=== PATIENT | female | born 2000 | race Caucasian/White ===

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

== ENCOUNTER 2020-09-02 23:44 | Emergency (ER) | payer MEDICAID, OTHER ==
[2020-09-03] MEDS ORDERED: Sodium Chloride 0.9% 10 ML Syringe FLUSH PRN (00:08)
[2020-09-03] MEDS ORDERED: Morphine 4 MG/ML VIAL IVPUSH ONE (00:10)
[2020-09-03] MEDS ORDERED: Ondansetron 4 MG/2 ML SDV IVPUSH ONE (00:10)
[2020-09-03] MEDS ORDERED: Sodium Chloride 0.9% 1,000 ML IV SCH (00:15)
--- NOTE | 2020-09-03 00:52 | EDM.PDOC ---
ED HPI GENERAL MEDICAL PROBLEM - General Chief Complaint: Abdominal Pain Stated Complaint: vomiting Time Seen by Provider: 09/02/20 23:45 Source of Information: Reports: Patient History Limitations: Reports: No Limitations - History of Present Illness INITIAL COMMENTS - FREE TEXT/NARRATIVE: Patient presented to the ED because of diarrhea for 1 week and today she has persistent nausea and vomiting. There is no associated fever although she has some chills. No cough or cold symptoms. The abdominal pain is cramping,7/10. upper and lower abd Pain Score (Numeric/FACES): 6 - Related Data Allergies Allergy/AdvReac Type Severity Reaction Status Date / Time No Known Allergies Allergy Verified 12/23/18 16:40 Home Meds: Home Meds desogestreL-ethinyl estradioL [Cyred 28 Day Tablet] 1 each PO DAILY 12/23/18 [History] Past Medical History - Past Health History Medical/Surgical History: Denies Medical/Surgical History HEENT History: Reports: Impaired Vision, Other (See Below) Other HEENT History: Eyeglasses Psychiatric History: Reports: Anxiety, Depression, Suicide Attempt Endocrine/Metabolic History: Reports: Obesity/BMI 30+ Hematologic History: Reports: Anemia Social & Family History - Family History Family Medical History: Noncontributory - Tobacco Use Tobacco Use Status *Q: Former Tobacco User Used Tobacco, but Quit: Yes Month/Year Tobacco Last Used: 2016 - Caffeine Use Caffeine Use: Reports: Soda, Tea ED ROS GENERAL - Review of Systems Review Of Systems: See Below Constitutional: Reports: No Symptoms HEENT: Reports: No Symptoms Respiratory: Reports: No Symptoms Cardiovascular: Reports: No Symptoms Endocrine: Reports: No Symptoms GI/Abdominal: Reports: Abdominal Pain, Nausea, Vomiting Musculoskeletal: Reports: No Symptoms Skin: Reports: No Symptoms Neurological: Reports: No Symptoms ED EXAM, GI/ABD - Physical Exam Exam: See Below Exam Limited By: No Limitations General Appearance: Alert, No Apparent Distress Ears: Normal External Exam, Normal [place] Nose: Normal Inspection, Normal Mucosa Throat/Mouth: Normal Inspection, Normal Lips, Normal Teeth Head: Atraumatic, Normocephalic Neck: Normal Inspection, Supple, Non-Tender Respiratory/Chest: No Respiratory Distress, Lungs Clear, Normal Breath Sounds Cardiovascular: Normal Peripheral Pulses, Regular Rate, Rhythm, No Edema, No G allop, No JVD, No Murmur GI/Abdominal Exam: Soft, No Distention, Abnormal Bowel Sounds, Other (tenderness over the suprapubic area and RLQ) Back Exam: Normal Inspection, Full Range of Motion Skin Exam: Warm, Dry, Intact Course - Vital Signs Text/Narrative:: Labs/Abd/Pelvis CT result was discussed with patient Ns 1 L bolus Zofran 4 mg IV x1 Morphine 4 mg IV x1 Compazine 10 mg IV x1 Toradol 30 mg IIV x1 Case discussed with dr Hernandez Last Recorded V/S: Last Vital Signs Temp 36.9 C 09/02/20 23:44 Pulse 97 09/02/20 23:44 Resp 16 09/02/20 23:44 BP 126/67 09/02/20 23:44 Pulse Ox 99 09/02/20 23:44 - Orders/Labs/Meds Orders: Active Orders 24 hr Category Date Time Status Abdomen Pelvis w Cont [CT] Stat Exams 09/03/20 00:52 Taken CORONAVIRUS COVID-19 LUCY [MOLEC] Stat Lab 09/03/20 02:24 Received Sodium Chloride 0.9% [Normal Saline] 1,000 ml Med 09/03/20 00:15 Active IV ASDIRECTED Sodium Chloride 0.9% [Saline Flush] Med 09/03/20 00:08 Active 10 ml FLUSH ASDIRECTED PRN Saline Lock Insert [OM.PC] Routine Oth 09/03/20 00:08 Ordered Medication Orders Sodium Chloride (Normal Saline) 1,000 mls @ 999 mls/hr IV ASDIRECTED BECKY Last Admin: 09/03/20 00:10 Dose: 999 mls/hr Documented by: [email or web address] Sodium Chloride (Saline Flush) 10 ml FLUSH ASDIRECTED PRN PRN Reason: Keep Vein Open Last Admin: 09/03/20 01:21 Dose: 10 ml Documented by: [id number] Labs: Laboratory Tests 09/03/20 09/03/20 09/03/20 Range/Units 00:22 00:22 00:22 WBC 11.4 (4.5-12.0) X10-3/uL RBC 5.43 H (3.23-5.20) x10(6)uL Hgb 15.7 H (11.5-15.5) g/dL Hct 45.7 (30.0-51.3) % MCV 84.0 (80-96) fL MCH 28.9 (27.7-33.6) pg MCHC 34.4 (32.2-35.4) g/dL RDW 12.7 (11.5-15.5) % Plt Count 286 (125-369) X10(3)uL MPV 8.5 (7.4-10.4) fL Neut % (Auto) 79.3 (46-82) % Lymph % (Auto) 11.5 L (13-37) % [place] % (Auto) 7.2 (4-12) % Eos % (Auto) 2 (1.0-5.0) % Baso % (Auto) 0 (0-2) % Neut # (Auto) 9.1 H (1.6-8.3) # Lymph # (Auto) 1.3 (0.6-5.0) # [place] # (Auto) 0.8 (0.0-1.3) # Eos # (Auto) 0.2 (0.0-0.8) # Baso # (Auto) 0.0 (0.0-0.2) # Sodium 138 (135-145) mmol/L Potassium 3.8 (3.5-5.3) mmol/L Chloride 104 (100-110) mmol/L Carbon Dioxide 24 (21-32) mmol/L BUN 11 (7-18) mg/dL Creatinine 0.9 (0.55-1.02) mg/dL Est Cr Clr Drug Dosing TNP Estimated GFR (MDRD) > 60 (>60) BUN/Creatinine Ratio 12.2 (9-20) Glucose 93 (80-116) mg/dL Calcium 8.6 (8.6-10.2) mg/dL Total Bilirubin 0.4 (0.1-1.3) mg/dL AST 32 H (5-25) IU/L ALT 46 H (12-36) U/L Alkaline Phosphatase 78 (56-112) IU/L Total Protein 7.4 (6.0-8.0) g/dL Albumin 3.6 (3.5-5.2) g/dL Globulin 3.8 g/dL Albumin/Globulin Ratio 1.0 Amylase 39 (25-115) U/L Lipase 66 L (73-393) U/L HCG, Quant (<5) mIU/mL Urine Color (YELLOW) Urine Appearance (CLEAR) Urine pH (5.0-6.5) Ur Specific [place] (1.010-1.025) Urine Protein (NEGATIVE) mg/dL Urine Glucose (UA) (NORMAL) mg/dL Urine Ketones (NEGATIVE) mg/dL Urine Occult Blood (NEGATIVE) Urine Nitrite (NEGATIVE) Urine Bilirubin (NEGATIVE) Urine Urobilinogen (NEGATIVE) mg/dL Ur Leukocyte Esterase (NEGATIVE) Urine RBC (0-5) Urine WBC (0-5) Ur Squamous Epith Cells (NS,R,O) Urine Bacteria (NS) Urine Mucus (NS) 09/03/20 09/03/20 Range/Units 00:22 00:26 WBC (4.5-12.0) X10-3/uL RBC (3.23-5.20) x10(6)uL Hgb (11.5-15.5) g/dL Hct (30.0-51.3) % MCV (80-96) fL MCH (27.7-33.6) pg MCHC (32.2-35.4) g/dL RDW (11.5-15.5) % Plt Count (125-369) X10(3)uL MPV (7.4-10.4) fL Neut % (Auto) (46-82) % Lymph % (Auto) (13-37) % [place] % (Auto) (4-12) % Eos % (Auto) (1.0-5.0) % Baso % (Auto) (0-2) % Neut # (Auto) (1.6-8.3) # Lymph # (Auto) (0.6-5.0) # [place] # (Auto) (0.0-1.3) # Eos # (Auto) (0.0-0.8) # Baso # (Auto) (0.0-0.2) # Sodium (135-145) mmol/L Potassium (3.5-5.3) mmol/L Chloride (100-110) mmol/L Carbon Dioxide (21-32) mmol/L BUN (7-18) mg/dL Creatinine (0.55-1.02) mg/dL Est Cr Clr Drug Dosing Estimated GFR (MDRD) (>60) BUN/Creatinine Ratio (9-20) Glucose (80-116) mg/dL Calcium (8.6-10.2) mg/dL Total Bilirubin (0.1-1.3) mg/dL AST (5-25) IU/L ALT (12-36) U/L Alkaline Phosphatase (56-112) IU/L Total Protein (6.0-8.0) g/dL Albumin (3.5-5.2) g/dL Globulin g/dL Albumin/Globulin Ratio Amylase (25-115) U/L Lipase (73-393) U/L HCG, Quant < 5 L (<5) mIU/mL Urine Color Yellow (YELLOW) Urine Appearance Cloudy (CLEAR) Urine pH 5.0 (5.0-6.5) Ur Specific [place] 1.025 (1.010-1.025) Urine Protein Trace (NEGATIVE) mg/dL Urine Glucose (UA) Normal (NORMAL) mg/dL Urine Ketones 15 H (NEGATIVE) mg/dL Urine Occult Blood Negative (NEGATIVE) Urine Nitrite Negative (NEGATIVE) Urine Bilirubin Negative (NEGATIVE) Urine Urobilinogen Normal (NEGATIVE) mg/dL Ur Leukocyte Esterase Negative (NEGATIVE) Urine RBC 0-5 (0-5) Urine WBC 0-5 (0-5) Ur Squamous Epith Cells Many H (NS,R,O) Urine Bacteria Moderate H (NS) Urine Mucus Few H (NS) Meds: Medications Generic Name Dose Route Start Last Admin Trade Name Freq PRN Reason Stop Dose Admin Sodium Chloride 1,000 mls @ 999 mls/hr 09/03/20 00:15 09/03/20 00:10 Normal Saline IV 999 mls/hr ASDIRECTED BECKY Administration Sodium Chloride 10 ml 09/03/20 00:08 09/03/20 01:21 Saline Flush FLUSH 10 ml ASDIRECTED PRN Administration Keep Vein Open Discontinued Medications Generic Name Dose Route Start Last Admin Trade Name Freq PRN Reason Stop Dose Admin Prochlorperazine Edisylate 10 52 mls @ 150 mls/hr 09/03/20 00:57 09/03/20 02:56 mg/ Sodium Chloride IV 09/03/20 01:17 Not Given ONETIME ONE Prochlorperazine Edisylate 10 52 mls @ 150 mls/hr 09/03/20 01:05 09/03/20 01:15 mg/ Sodium Chloride IV 09/03/20 01:25 150 mls/hr ONETIME ONE Administration Iopamidol 100 ml 09/03/20 01:27 09/03/20 01:33 Isovue-370 (76%) IV 09/03/20 01:28 81 ml ONETIME ONE Administration Ketorolac Tromethamine 30 mg 09/03/20 00:57 09/03/20 01:16 Toradol IVPUSH 09/03/20 00:58 30 mg ONETIME ONE Administration Morphine Sulfate 4 mg 09/03/20 00:10 09/03/20 00:18 Morphine IVPUSH 09/03/20 00:11 4 mg ONETIME ONE Administration Ondansetron HCl 4 mg 09/03/20 00:10 09/03/20 00:18 Zofran IVPUSH 09/03/20 00:11 4 mg ONETIME ONE Administration Departure - Departure Time of Disposition: 03:05 Disposition: DC/Tfer to Acute Hospital 02 Condition: Good Clinical Impression: Acute appendicitis - Discharge Information Referrals: PCP,None [Primary Care Provider] - Forms: ED Department Discharge Sepsis Event Note (ED) - Evaluation Sepsis Screening Result: No Definite Risk - Focused Exam Vital Signs: Vital Signs Temp Pulse Resp BP Pulse Ox 09/02/20 23:44 36.9 C 97 16 126/67 99 - My Orders Last 24 Hours: My Active Orders 09/03/20 00:08 Sodium Chloride 0.9% [Saline Flush] 10 ml FLUSH ASDIRECTED PRN Saline Lock Insert [OM.PC] Routine 09/03/20 00:15 Sodium Chloride 0.9% [Normal Saline] 1,000 ml IV ASDIRECTED 09/03/20 00:52 Abdomen Pelvis w Cont [CT] Stat 09/03/20 02:24 CORONAVIRUS COVID-19 LUCY [MOLEC] Stat - Assessment/Plan Last 24 Hours: My Active Orders 09/03/20 00:08 Sodium Chloride 0.9% [Saline Flush] 10 ml FLUSH ASDIRECTED PRN Saline Lock Insert [OM.PC] Routine 09/03/20 00:15 Sodium Chloride 0.9% [Normal Saline] 1,000 ml IV ASDIRECTED 09/03/20 00:52 Abdomen Pelvis w Cont [CT] Stat 09/03/20 02:24 CORONAVIRUS COVID-19 LUCY [MOLEC] Stat
[2020-09-03] MEDS ORDERED: Ketorolac 30 MG/ML SDV IVPUSH ONE (00:57)
[2020-09-03] MEDS ORDERED: Prochlorperazine 10 MG in Sodium Chloride 0.9% 50 ML IV ONE ×2 (00:57→01:05)
[2020-09-03] MEDS ORDERED: Iopamidol 755 Mg/ML 100 ML Bottle IV ONE (01:27)
[2020-09-03 05:21] VITALS: BP 121/81; PULSE 73
== END 2020-09-03 03:30 ==
LOC: FB.ED 23:44
DX: K35.80 Unspecified acute appendicitis (principal); E66.9 Obesity, unspecified; Z87.891 Personal history of nicotine dependence; Z68.41 Body mass index [BMI] 40.0-44.9, adult; Z20.828 Contact with and (suspected) exposure to other viral communicable diseases
CPT/HCPCS: 36415; 74177; 80053; 81001; 82150; 83690; 84702; 85025; 87635; 96365; 96375; 99285; J0780; J1885; J2270; J2405; J7030; Q9967; 99284; U0002

== ENCOUNTER 2020-09-04 14:30 | Emergency (ER) | payer MEDICAID ==
[2020-09-04] MEDS ORDERED: HYDROmorphone 2 MG/ML SDV IM ONE (14:58)
[2020-09-04] MEDS ORDERED: LORazepam 2 MG/ML SDV IM ONE (14:59)
--- NOTE | 2020-09-04 15:05 | EDM.PDOC ---
ED HPI GENERAL MEDICAL PROBLEM - General Chief Complaint: Abdominal Pain Stated Complaint: APPENDIX PAIN Time Seen by Provider: 09/04/20 14:50 Source of Information: Reports: Patient, Old Records History Limitations: Reports: No Limitations - History of Present Illness INITIAL COMMENTS - FREE TEXT/NARRATIVE: Antonio returns to [facility] ED with LLQ pain overlying the port access from recent laparoscopic appy performed at [facility] yesterday. She had some pain last pm that has slowly escalated today. Pain appears to be somewhat positional, worse with lifting, straining, turning or other movements. Her apppetite is diminished. There are no voiding issues. An injection of Toradol 60 mg earlier today was only partially effective. She has 1 Oxycodone remaining at home. Abdominal Pain Score (Numeric/FACES): 8 - Related Data Allergies Allergy/AdvReac Type Severity Reaction Status Date / Time No Known Allergies Allergy Verified 09/04/20 14:55 Past Medical History - Past Health History Medical/Surgical History: Denies Medical/Surgical History HEENT History: Reports: Impaired Vision, Other (See Below) Other HEENT History: Eyeglasses Psychiatric History: Reports: Anxiety, Depression, Suicide Attempt Endocrine/Metabolic History: Reports: Obesity/BMI 30+ Hematologic History: Reports: Anemia - Past Surgical History GI Surgical History: Reports: Appendectomy Social & Family History - Family History Family Medical History: Noncontributory - Caffeine Use Caffeine Use: Reports: Soda, Tea ED ROS GENERAL - Review of Systems Review Of Systems: Comprehensive ROS is negative, except as noted in HPI. ED EXAM, GI/ABD - Physical Exam Exam: See Below Exam Limited By: No Limitations General Appearance: Alert, WD/WN, Anxious, Moderate Distress, Obese Eyes: Bilateral: Normal Appearance, EOMI Ears: Normal External Exam Nose: Normal Inspection Throat/Mouth: Normal Inspection, Normal Oropharynx, Normal Voice Head: Normocephalic Neck: Normal Inspection, Supple, Non-Tender Respiratory/Chest: No Respiratory Distress, Lungs Clear, No Accessory Muscle Use, Chest Non-Tender Cardiovascular: Normal Peripheral Pulses, Regular Rate, Rhythm, No Murmur GI/Abdominal Exam: Soft, No Organomegaly, No Distention, No Mass, Tender (L upper and lower abdomen without rebound or guarding) (Female) Exam: Deferred Rectal (Female) Exam: Deferred Back Exam: Normal Inspection Extremities: Normal Inspection Neurological: Alert, Oriented, CN II-XII Intact, No Motor/Sensory Deficits Psychiatric: Normal Affect, Anxious Skin Exam: Warm, Dry, Intact, Normal Color, No Rash Lymphatic: No Adenopathy Course - Vital Signs Text/Narrative:: Following assessment, I administered Dilaudid 2 mg IM and Ativan 1 mg IM for post operative incisional pain and spasm, with improvement is sxs. Last Recorded V/S: Last Vital Signs Temp 36.8 C 09/04/20 14:55 Pulse 92 09/04/20 14:55 Resp 18 09/04/20 14:55 BP 117/68 09/04/20 14:55 Pulse Ox 98 09/04/20 14:55 - Orders/Labs/Meds Meds: Medications Discontinued Medications Generic Name Dose Route Start Last Admin Trade Name Renita PRN Reason Stop Dose Admin Hydromorphone HCl 2 mg 09/04/20 14:58 09/04/20 15:09 Dilaudid IM 09/04/20 14:59 2 mg ONETIME ONE Administration Lorazepam 1 mg 09/04/20 14:59 09/04/20 15:09 Ativan IM 09/04/20 15:00 1 mg ONETIME ONE Administration Departure - Departure Time of Disposition: 15:39 Disposition: Home, Self-Care 01 Condition: Fair Clinical Impression: Postoperative abdominal pain - Discharge Information *PRESCRIPTION DRUG MONITORING PROGRAM REVIEWED*: Not Applicable *COPY OF PRESCRIPTION DRUG MONITORING REPORT IN PATIENT [place]: Not Applicable Referrals: PCP,None [Primary Care Provider] - Forms: ED Department Discharge Sepsis Event Note (ED) - Focused Exam Vital Signs: Vital Signs Temp Pulse Resp BP Pulse Ox 09/04/20 14:55 36.8 C 92 18 117/68 98 - Problem List & Annotations (1) Postoperative abdominal pain SNOMED Code(s): 91608551 Code(s): R10.9 - UNSPECIFIED ABDOMINAL PAIN; G89.18 - OTHER ACUTE POSTPROCEDURAL PAIN Status: Acute Current Visit: Yes Annotation/Comment:: Post operative abdominal pain, without evidence of wound complication at this time. I suggested rest, cool packs for comfort, NSAIDs or Tylenol, and follow up with Surgery if needed. - Problem List Review Problem List Initiated/Reviewed/Updated: Yes - Assessment/Plan Plan: Follow up with Surgery.
[2020-09-04 15:58] VITALS: BP 112/64; PULSE 75
== END 2020-09-04 15:55 | disposition home or self-care (01) ==
LOC: FB.ED 14:30
DX: G89.18 Other acute postprocedural pain (principal); R10.32 Left lower quadrant pain; E66.9 Obesity, unspecified; Z68.41 Body mass index [BMI] 40.0-44.9, adult
CPT/HCPCS: 96372; 99283; J1170; J2060